=== PATIENT | female | born 1945 | race Caucasian/White ===

== ENCOUNTER → 2020-07-14 13:06 | Outpatient (BNVA) | payer MEDICARE, OTHER, SELFPAY | PROVIDERS: PCP Family Medicine; Referring Provider Family Medicine; Visit Provider Internal Medicine Endocrinology, Diabetes & Metabolism | DX: E11.65 Type 2 diabetes mellitus with hyperglycemia (principal); I12.9 Hypertensive chronic kidney disease with stage 1 through stage 4 chronic kidney disease, or unspecified chronic kidney disease; E11.22 Type 2 diabetes mellitus with diabetic chronic kidney disease; N18.30 Chronic kidney disease, stage 3 unspecified; Z79.4 Long term (current) use of insulin; E78.5 Hyperlipidemia, unspecified; E66.9 Obesity, unspecified; Z68.38 Body mass index [BMI] 38.0-38.9, adult | CPT/HCPCS: 82947; 99212 ==

== ENCOUNTER 2020-08-04 11:21 | Emergency (ER) | payer MEDICARE, OTHER, SELFPAY ==
[2020-08-04 11:46] VITALS: BP 153/74; PULSE 90; RESP 16; TEMP 37.7; O2SAT 98; BMI 37.8
--- NOTE | 2020-08-04 11:48 | ED.URI ---
HPI - URI/Sore Throat General Chief Complaint: Weakness Stated Complaint: loss of appetite,mouth dry,weak Time Seen by Provider: 08/04/20 11:47 Source: patient Mode of arrival: ambulatory Limitations: no limitations History of Present Illness MD elicited complaint: other (body aches, malaise, overall weakness) Pertinent past history: asthma and other Onset (ago): day(s) (3) Consistency: constant Severity: moderate Able to tolerate fluids by mouth: Yes Exacerbating factors: nothing Relieving factors: nothing Associated symptoms: chills, myalgias and nausea Treatments prior to arrival: none Related Data Home Medications Medication Instructions Recorded Confirmed amlodipine 5 mg tablet 5 mg PO DAILY 07/14/20 07/14/20 aspirin 81 mg tablet,delayed 81 mg PO DAILY 07/14/20 07/14/20 release atorvastatin 20 mg tablet 20 mg PO DAILY 07/14/20 07/14/20 duloxetine 20 mg capsule,delayed 20 mg PO BID 07/14/20 07/14/20 release gabapentin 100 mg capsule 100 mg PO DAILY 07/14/20 07/14/20 metoprolol tartrate 25 mg tablet 75 mg PO DAILY tab 07/14/20 07/14/20 Previous Rx's Medication Instructions Recorded dulaglutide 1.5 mg/0.5 mL 1.5 mg SUBCUT QWEEK 90 Days #6.5 ml 07/14/20 subcutaneous pen injector empagliflozin 25 mg tablet 25 mg PO DAILY 90 Days #90 tab 07/14/20 insulin regular hum U-500 conc See Rx Instructions SUBCUT BEDTIME 07/14/20 90 Days #36 ml pioglitazone 30 mg tablet 30 mg PO DAILY 90 Days #90 tab 07/14/20 azithromycin See Rx Instructions .ROUTE 08/04/20 .COMPLEX #6 tab ondansetron 4 mg PO Q8H PRN #20 tab 08/04/20 Allergies Allergy/AdvReac Type Severity Reaction Status Date / Time fosinopril [FOSINOPRIL] Allergy Severe ANAPHYLAXIS Verified 08/04/20 11:54 lisinopril [LISINOPRIL] Allergy Severe ANAPHYLAXIS Verified 08/04/20 11:54 Review of Systems Review of Systems: Constitutional : No Weight loss, No Fever, pos Chills ENT/Mouth : No sore throat, No Rhinorrhea Eyes: No Swelling, No Redness Cardiovascular : No Chest Pain, No SOB, No Edema Respiratory : No Cough, No Sputum, No Wheezing Gastrointestinal : Positive Nausea, no Vomiting, no Diarrhea, no abdominal Pain, No Hematochezia, No Melena Genitourinary : No Dysuria, No Urinary Frequency, No Hematuria, No Urgency Musculoskeletal : No joint pain, pos Myalgias, No Joint Swelling Skin : No Skin Lesions, No rash Neuro : No Weakness, No Numbness, No Dizziness, No Headache Psych : No Anxiety/Panic, No Depression Heme/Lymph: No Bruising, No Lymphadenopathy Endocrine : No Polyuria, No Polydipsia All other systems reviewed and are negative. [facility] Past Medical History Attestation statement: The following information was validated with the patient. 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 Mother Diabetes mellitus Social History Social History Smoking Status: Former smoker Advance Directives: No Advance Directives Information Provided: No Physical Exam Vital Signs: Vital Signs: Last Vital Signs Temp 99.7 F 08/04/20 14:13 Pulse 78 08/04/20 14:13 Resp 16 08/04/20 14:13 BP 127/42 L 08/04/20 14:13 Pulse Ox 99 08/04/20 14:13 Body Mass Index 37.8 Appearance: Alert. Oriented X3. No acute distress. Eyes: Pupils equal, round and reactive to light. ENT: Pharynx normal. Neck: Normal inspection. Neck supple. CVS: Normal heart rate and rhythm. Pulses normal. Respiratory: No respiratory distress. Breath sounds normal. Abdomen: Soft and nontender. Skin: Skin warm and dry. Normal skin color. Normal skin turgor. Extremities: No lower extremity edema. No calf ttp Neuro: Oriented X 3. No motor deficit. No sensory deficit. Course Course Course Narrative: no hypoxia, no resp distress + COVID, if repeat trop flat stable for DC no CP/SOB doubt PE repeat trop flat MDM - URI/Sore Throat MDM Narrative Medical decision making narrative: 75 yo female with URI x a few days overall just feeling weakness with malaise and anorexia x 2 weeks no distress, no abdominal pain, clear lungs at this time will obtain basic labs, UA, CXR, COVID swab no resp distress, no hypoxia dispo per results and findings. Lab Data Result diagrams: 08/04/20 12:41 08/04/20 12:41 Labs: Lab Results 08/04/20 08/04/20 08/04/20 Range/Units 12:41 12:41 12:41 WBC 7.7 (4.8-10.8) X10*3/uL RBC 4.93 (4.20-5.50) X10*6/uL Hgb 14.5 (12.0-16.0) g/dl Hct 44.9 (37-47) % MCV 91.1 (80-98) fL MCH 29.4 (27.0-33.0) pg MCHC 32.3 (31.0-35.0) g/dl RDW 14.9 (11.0-16.0) % Plt Count 241 (160-400) X10*3/uL MPV 10.0 (9.4-12.3) fL Immature Gran % (Auto) 1.3 H (0.0-0.4) % Neut % (Auto) 83.8 H (45-73) % Lymph % (Auto) 8.2 L (20-40) % Elbert % (Auto) 6.4 (2-11) % Eos % (Auto) 0.0 (0-4) % Baso % (Auto) 0.3 (0-2) % Lymph # (Auto) 0.6 L (1.2-4.9) X10*3/uL Elbert # (Auto) 0.5 (0.1-1.2) X10*3/uL Eos # (Auto) 0.0 (0.0-0.4) X10*3/uL Baso # (Auto) 0.0 (0.0-0.2) X10*3/uL Abs Immat Gran (auto) 0.10 H (0.00-0.03) X10*3/uL Absolute Neuts (auto) 6.4 (2.0-8.3) X10*3/uL Absolute Nucleated RBC 0.000 (0.0-0.012) X10*3/uL Nucleated RBC % (auto) 0.0 (0.0-0.2) /100WBC Smear Tech's Comments VERIFIED PT 13.3 H (10.8-13.0) SEC INR 1.1 (0.9-1.1) APTT 32.7 (24.1-38.0) SEC Sodium 137 (135-145) mmol/L Potassium 4.4 (3.3-5.1) mmol/l Chloride 100 (96-108) mmol/L Carbon Dioxide 24 (22-29) mmol/L Anion Gap 17 (12-20) BUN 17 H (9-16) mg/dL Creatinine 1.23 (0.5-1.4) mg/dL Estim Creat Clear Calc 42.8 Estimated GFR 43 Random Glucose 227 H (60-115) mg/dL Lactic Acid (0.5-2.0) mmol/L Calcium 8.2 L (8.4-10.2) mg/dL Magnesium (1.6-2.6) mg/dL Total Bilirubin 0.7 (0.0-1.0) mg/dL Direct Bilirubin 0.3 (0.0-0.5) mg/dL AST 27 (5-31) U/L ALT 25 (0-31) U/L Alkaline Phosphatase 139 H (39-117) U/L Troponin I High Sens (<3.5-17.0) ng/L Total Protein 7.0 (6.5-8.0) g/dL Albumin 3.6 (3.5-5.0) g/dL Lipase 27 (8-78) U/L Coronavirus (PCR) (Negative) Influenza Type A (PCR) (Negative) Influenza Type B (PCR) (Negative) RSV RNA Qual (PCR) (Negative) 08/04/20 08/04/20 08/04/20 Range/Units 12:41 12:41 12:41 WBC (4.8-10.8) X10*3/uL RBC (4.20-5.50) X10*6/uL Hgb (12.0-16.0) g/dl Hct (37-47) % MCV (80-98) fL MCH (27.0-33.0) pg MCHC (31.0-35.0) g/dl RDW (11.0-16.0) % Plt Count (160-400) X10*3/uL MPV (9.4-12.3) fL Immature Gran % (Auto) (0.0-0.4) % Neut % (Auto) (45-73) % Lymph % (Auto) (20-40) % Elbert % (Auto) (2-11) % Eos % (Auto) (0-4) % Baso % (Auto) (0-2) % Lymph # (Auto) (1.2-4.9) X10*3/uL Elbert # (Auto) (0.1-1.2) X10*3/uL Eos # (Auto) (0.0-0.4) X10*3/uL Baso # (Auto) (0.0-0.2) X10*3/uL Abs Immat Gran (auto) (0.00-0.03) X10*3/uL Absolute Neuts (auto) (2.0-8.3) X10*3/uL Absolute Nucleated RBC (0.0-0.012) X10*3/uL Nucleated RBC % (auto) (0.0-0.2) /100WBC Smear Tech's Comments PT (10.8-13.0) SEC INR (0.9-1.1) APTT (24.1-38.0) SEC Sodium (135-145) mmol/L Potassium (3.3-5.1) mmol/l Chloride (96-108) mmol/L Carbon Dioxide (22-29) mmol/L Anion Gap (12-20) BUN (9-16) mg/dL Creatinine (0.5-1.4) mg/dL Estim Creat Clear Calc Estimated GFR Random Glucose (60-115) mg/dL Lactic Acid (0.5-2.0) mmol/L Calcium (8.4-10.2) mg/dL Magnesium 1.9 (1.6-2.6) mg/dL Total Bilirubin (0.0-1.0) mg/dL Direct Bilirubin (0.0-0.5) mg/dL AST (5-31) U/L ALT (0-31) U/L Alkaline Phosphatase (39-117) U/L Troponin I High Sens 14.3 (<3.5-17.0) ng/L Total Protein (6.5-8.0) g/dL Albumin (3.5-5.0) g/dL Lipase (8-78) U/L Coronavirus (PCR) POSITIVE A (Negative) Influenza Type A (PCR) NEGATIVE (Negative) Influenza Type B (PCR) NEGATIVE (Negative) RSV RNA Qual (PCR) NEGATIVE (Negative) 08/04/20 08/04/20 Range/Units 14:18 15:51 WBC (4.8-10.8) X10*3/uL RBC (4.20-5.50) X10*6/uL Hgb (12.0-16.0) g/dl Hct (37-47) % MCV (80-98) fL MCH (27.0-33.0) pg MCHC (31.0-35.0) g/dl RDW (11.0-16.0) % Plt Count (160-400) X10*3/uL MPV (9.4-12.3) fL Immature Gran % (Auto) (0.0-0.4) % Neut % (Auto) (45-73) % Lymph % (Auto) (20-40) % Elbert % (Auto) (2-11) % Eos % (Auto) (0-4) % Baso % (Auto) (0-2) % Lymph # (Auto) (1.2-4.9) X10*3/uL Elbert # (Auto) (0.1-1.2) X10*3/uL Eos # (Auto) (0.0-0.4) X10*3/uL Baso # (Auto) (0.0-0.2) X10*3/uL Abs Immat Gran (auto) (0.00-0.03) X10*3/uL Absolute Neuts (auto) (2.0-8.3) X10*3/uL Absolute Nucleated RBC (0.0-0.012) X10*3/uL Nucleated RBC % (auto) (0.0-0.2) /100WBC Smear Tech's Comments PT (10.8-13.0) SEC INR (0.9-1.1) APTT (24.1-38.0) SEC Sodium (135-145) mmol/L Potassium (3.3-5.1) mmol/l Chloride (96-108) mmol/L Carbon Dioxide (22-29) mmol/L Anion Gap (12-20) BUN (9-16) mg/dL Creatinine (0.5-1.4) mg/dL Estim Creat Clear Calc Estimated GFR Random Glucose (60-115) mg/dL Lactic Acid 0.9 (0.5-2.0) mmol/L Calcium (8.4-10.2) mg/dL Magnesium (1.6-2.6) mg/dL Total Bilirubin (0.0-1.0) mg/dL Direct Bilirubin (0.0-0.5) mg/dL AST (5-31) U/L ALT (0-31) U/L Alkaline Phosphatase (39-117) U/L Troponin I High Sens 14.1 (<3.5-17.0) ng/L Total Protein (6.5-8.0) g/dL Albumin (3.5-5.0) g/dL Lipase (8-78) U/L Coronavirus (PCR) (Negative) Influenza Type A (PCR) (Negative) Influenza Type B (PCR) (Negative) RSV RNA Qual (PCR) (Negative) ECG Data Attestation: I personally reviewed and interpreted this ECG as follows: ECG interpretation date: 08/04/20 ECG interpretation time: 14:02 Interpretation: Rate: 80 Rhythm: NSR [place]: normal Normal P waves. Normal ANA. Normal QRS complex. ST T wave : normal, no ALAN qTC: normal prior studies: no acute ischemia The study has been interpreted contemporaneously by me. . Discharge Plan Discharge Clinical Impression: COVID-19 Patient Disposition: Home, Self-Care Instructions: COVID-19 (Coronavirus Disease 2019) (ED) Additional Instructions: return to ED for any worsening symptoms or concerns Prescriptions: New ondansetron 4 mg tablet,disintegrating 4 mg PO Q8H PRN (Reason: nausea and vomiting) Qty: 20 RF: 0 azithromycin 250 mg tablet See Rx Instructions .ROUTE .COMPLEX Qty: 6 RF: 0 No Action metoprolol tartrate 25 mg tablet 75 mg PO DAILY RF: 0 amlodipine 5 mg tablet 5 mg PO DAILY RF: 0 atorvastatin 20 mg tablet 20 mg PO DAILY RF: 0 aspirin [Adult Aspirin Regimen] 81 mg tablet,delayed release (DR/EC) 81 mg PO DAILY RF: 0 duloxetine 20 mg capsule,delayed release(DR/EC) 20 mg PO BID RF: 0 gabapentin 100 mg capsule 100 mg PO DAILY RF: 0 pioglitazone 30 mg tablet 30 mg PO DAILY 90 Days Qty: 90 RF: 1 Jardiance 25 mg tablet 25 mg PO DAILY 90 Days Qty: 90 RF: 1 Trulicity 1.5 mg/0.5 mL pen injector 1.5 mg subcut QWEEK 90 Days Qty: 6.5 RF: 1 Humulin R U-500 (Conc) Kwikpen 500 unit/mL (3 mL) insulin pen See Rx Instructions subcut BEDTIME 90 Days Qty: 36 RF: 1 Referrals: Salima Billings MD [Primary Care Provider] - 5 days (if not better) Print Language: Persian
--- NOTE | 2020-08-04 11:55 | ECG_ITS ---
Test Reason : WEAKNESS Blood Pressure : / mmHG Vent. Rate : 080 BPM Atrial Rate : 080 BPM P-R Int : 146 ms QRS Dur : 082 ms QT Int : 362 ms P-R-T Axes : 047 048 042 degrees QTc Int : 417 ms Normal sinus rhythm Normal ECG When compared with ECG of 29-DEC-2016 14:54, No significant change was found Referred By: Yuliana Burgos Electronically Signed By:Chavo Bloom
--- NOTE | 2020-08-04 11:56 | XR_ITS ---
EXAMINATION: XR CHEST CLINICAL INFORMATION: Dyspnea. COMPARISON: 01/21/2020 TECHNIQUE: Frontal view of the chest was obtained. FINDINGS: Cardiomediastinal silhouette is within normal limits. Calcification of the aortic arch. Low lung volumes. Mild central vascular prominence. There is diffuse bronchial wall thickening, increased from previous. Diffuse hazy and patchy airspace opacities, with interstitial prominence in bilateral hemithoraces, increased from previous. Possible trace left pleural effusion. No pneumothorax. XR/XR chest 1V IMPRESSION: Central vascular prominence. Bronchial wall thickening and diffuse hazy and patchy airspace opacities in bilateral hemithoraces. Differential considerations include infectious or inflammatory process, mild pulmonary edema. Possible trace left pleural effusion.
[2020-08-04] MEDS: Acetaminophen 325 MG TABLET 650 MG PO (12:43)
[2020-08-04] MEDS: ondansetron HCL 4 MG/2 ML VIAL IVPUSH (12:43)
[2020-08-04 12:56] LABS: Basophils Percent Auto 0.3 % (0-2); Hematocrit 44.9 % (37-47); Hemoglobin 14.5 g/dl (12.0-16.0); Imm Gran Pct Auto 1.3 % (0.0-0.4); Lymphocytes Absolute Auto 0.6 X10*3/uL (1.2-4.9); Lymphocytes Percent Auto 8.2 % (20-40); MANUAL DIFF FLAG SCAN; Mean Corpuscular HGB Conc 32.3 g/dl (31.0-35.0); Mean Corpuscular Hemoglobin 29.4 pg (27.0-33.0); Mean Corpuscular Volume 91.1 fL (80-98); Monocytes Absolute Auto 0.5 X10*3/uL (0.1-1.2); Monocytes Percent Auto 6.4 % (2-11); Neutrophils Absolute Auto 6.4 X10*3/uL (2.0-8.3); Neutrophils Percent Auto 83.8 % (45-73); Platelet Count 241 X10*3/uL (160-400); Red Blood Count 4.93 X10*6/uL (4.20-5.50); Red Cell Distribution Width 14.9 % (11.0-16.0); SCAN SMEAR FLAG 1; White Blood Count 7.7 X10*3/uL (4.8-10.8)
[2020-08-04 13:05] LABS: INTERNATIONAL NORM RATIO 1.1 (0.9-1.1); Prothrombin Time 13.3 SEC (10.8-13.0)
[2020-08-04 13:08] LABS: Partial Thromboplastin Time 32.7 SEC (24.1-38.0)
[2020-08-04] MEDS: cefTRIAXone sodium 1 GM in 0.9 % Sodium Chloride 50 ML IV (13:14)
[2020-08-04 13:24] LABS: SLIDE REVIEW VERIFIED
[2020-08-04 13:34] LABS: Troponin-I High Sensitivity 14.3 ng/L (<3.5-17.0)
[2020-08-04 13:35] LABS: Alanine Aminotransferase 25 U/L (0-31); Albumin Level 3.6 g/dL (3.5-5.0); Alkaline Phosphatase 139 U/L (39-117); Anion Gap 17 (12-20); Aspartate Amino Transferase 27 U/L (5-31); Bilirubin Direct 0.3 mg/dL (0.0-0.5); Bilirubin Total 0.7 mg/dL (0.0-1.0); Blood Urea Nitrogen 17 mg/dL (9-16); Calcium 8.2 mg/dL (8.4-10.2); Carbon Dioxide 24 mmol/L (22-29); Chloride 100 mmol/L (96-108); Creatinine Clr Calc Pharmacy 42.8; Estimated Glomerular Filt Rate 43; Glucose Random 227 mg/dL (60-115); Lipase 27 U/L (8-78); Potassium 4.4 mmol/l (3.3-5.1); Sodium 137 mmol/L (135-145)
[2020-08-04 13:36] LABS: Magnesium 1.9 mg/dL (1.6-2.6)
--- NOTE | 2020-08-04 14:00 | PC.NURSE ---
PT ARRIVES C/O WEAKNESS X 2 WKS, WITH NO APETITE. DENIES N/V/D, PAIN. MILDLY FEBRILE ON ARRIVAL. RESP EVEN AND NONLABOURED. SKIN COLOUR APPROPRIATE FOR ETHNICITY, WARM, DRY. #20 IN L AC. MEDICATED PER EMR.
[2020-08-04 14:13] VITALS: BP 127/42; PULSE 78; RESP 16; TEMP 37.6; O2SAT 99
[2020-08-04 14:46] LABS: Influenza A PCR NEGATIVE (Negative); Influenza B PCR NEGATIVE (Negative); Resp Syncy Virus RNA Qual PCR NEGATIVE (Negative); SARS COV2 PCR INHOUSE POSITIVE (Negative)
[2020-08-04 14:54] LABS: Lactic Acid 0.9 mmol/L (0.5-2.0)
[2020-08-04 16:27] LABS: Troponin-I High Sensitivity 14.1 ng/L (<3.5-17.0)
== END 2020-08-04 17:00 | disposition home or self-care (01) ==
PROVIDERS: Emergency Provider Emergency Medicine; PCP Family Medicine
DX: U07.1 COVID-19 (principal); J45.909 Unspecified asthma, uncomplicated; E11.22 Type 2 diabetes mellitus with diabetic chronic kidney disease; I12.9 Hypertensive chronic kidney disease with stage 1 through stage 4 chronic kidney disease, or unspecified chronic kidney disease; N18.30 Chronic kidney disease, stage 3 unspecified; Z79.4 Long term (current) use of insulin; Z79.899 Other long term (current) drug therapy; Z79.82 Long term (current) use of aspirin; Z87.891 Personal history of nicotine dependence
CPT/HCPCS: 0241U; 36415; 71045; 80048; 80076; 83605; 83690; 83735; 84484; 85025; 85610; 85730; 87040; 93005; 96365; 96375; 99284; J0696; J2405

== ENCOUNTER → 2020-10-16 13:00 | Outpatient (BNVA) | payer MEDICARE, OTHER, SELFPAY | PROVIDERS: PCP Family Medicine; Visit Provider Internal Medicine Endocrinology, Diabetes & Metabolism | DX: E11.65 Type 2 diabetes mellitus with hyperglycemia (principal); E11.21 Type 2 diabetes mellitus with diabetic nephropathy; I10 Essential (primary) hypertension; E78.5 Hyperlipidemia, unspecified; E66.9 Obesity, unspecified; Z79.4 Long term (current) use of insulin | CPT/HCPCS: 82947; 99212 ==

== ENCOUNTER 2020-11-25 12:24 | Outpatient (REF) | payer MEDICARE, OTHER, SELFPAY ==
--- NOTE | ~2020-11-25 | XR_ITS ---
EXAMINATION: XR ANKLE, LEFT CLINICAL INFORMATION: Pain left ankle. COMPARISON: 05/07/2020 TECHNIQUE: AP, lateral, and mortise views of the left ankle. FINDINGS: There is no evidence of acute fracture or dislocation of the left ankle. No significant soft tissue swelling identified. Ankle mortise appears intact. Prominent calcaneal spurs are seen sites of insertion of the Achilles and plantar tendons. XR/XR ankle LT min 3V IMPRESSION: Calcaneal spurs. No significant left ankle bony abnormality appreciated.
== END 2020-11-25 12:25 | disposition home or self-care (01) ==
LOC: HO.HOSX 12:24
PROVIDERS: PCP Family Medicine; Visit Provider Orthopaedic Surgery
DX: M25.572 Pain in left ankle and joints of left foot (principal); M25.472 Effusion, left ankle
CPT/HCPCS: 73610; 99202

== ENCOUNTER 2020-12-01 07:04 | Outpatient (REF) | payer MEDICARE, OTHER, SELFPAY ==
[2020-12-01 08:20] LABS: Anion Gap 13 (12-20); Blood Urea Nitrogen 27 mg/dL (9-16); Calcium 9.8 mg/dL (8.4-10.2); Carbon Dioxide 26 mmol/L (22-29); Chloride 104 mmol/L (96-108); Estimated Glomerular Filt Rate 48; Potassium 4.1 mmol/L (3.3-5.1); Sodium 139 mmol/L (135-145)
[2020-12-01 10:15] LABS: Creatinine Urine 66.84 mg/dL; Protein/Creatinine Ratio, Ur 0.18 (<0.2); Total Protein Urine Random 12 mg/dL (<12)
== END 2020-12-01 07:05 | disposition home or self-care (01) ==
LOC: HO.LAB 07:04
PROVIDERS: PCP Family Medicine; Visit Provider Internal Medicine Hypertension Specialist
DX: I12.9 Hypertensive chronic kidney disease with stage 1 through stage 4 chronic kidney disease, or unspecified chronic kidney disease (principal); E11.22 Type 2 diabetes mellitus with diabetic chronic kidney disease; N18.9 Chronic kidney disease, unspecified; E11.65 Type 2 diabetes mellitus with hyperglycemia
CPT/HCPCS: 36415; 80051; 82310; 82565; 84156; 84520

== ENCOUNTER 2020-12-04 14:32 | Outpatient (REF) | payer MEDICARE, OTHER, SELFPAY ==
--- NOTE | ~2020-12-04 | MM_ITS ---
EXAMINATION: MM DIAGNOSTIC DIGITAL BREAST TOMOSYNTHESIS, RIGHT CLINICAL INFORMATION: Follow-up calcifications The lifetime risk of breast cancer based on the Tyrer-Cuzick Model is 2.1%. COMPARISON: Mammography: May 15, 2020 TECHNIQUE: Digital breast tomosynthesis is performed in both the craniocaudal and mediolateral oblique views along with computer-aided detection (CAD). Synthesized 2D images are generated from the tomosynthesis. Spot magnification films in craniocaudal and 90 degree mediolateral views also performed as well as exaggerated craniocaudal view. FINDINGS: There are scattered areas of fibroglandular density (ACR BI-RADS breast composition Category b). There is a stable parenchymal pattern present without new abnormal dominant mass or suspicious grouping of microcalcifications identified. There is stable appearance of a tight grouping of coarse calcifications about the upper outer aspect of the right breast with benign appearance. Vascular calcifications are present. Results are provided to the patient at time of visit by the technologist. MM/MM tomosynthesis diagnostic RT IMPRESSION: There are no significant changes from prior study. ASSESSMENT: BI-RADS 2: Benign RECOMMENDATION: Return to yearly screening mammography. This patient's information was entered into a reminder system with a target due date for their next mammogram.
== END 2020-12-04 14:33 | disposition home or self-care (01) ==
LOC: HO.MAMMO 14:32
PROVIDERS: PCP Family Medicine; Visit Provider Family Medicine
DX: R92.1 Mammographic calcification found on diagnostic imaging of breast (principal)
CPT/HCPCS: 77061; 77065

== ENCOUNTER → 2021-01-06 13:58 | Outpatient (BNVA) | payer MEDICARE, OTHER, SELFPAY | PROVIDERS: PCP Family Medicine; Visit Provider Nurse Practitioner Gerontology | DX: E11.65 Type 2 diabetes mellitus with hyperglycemia (principal); Z79.4 Long term (current) use of insulin; I10 Essential (primary) hypertension; E66.9 Obesity, unspecified | CPT/HCPCS: 82947; 99212 ==

== ENCOUNTER → 2021-01-12 14:16 | Outpatient (BNVA) | payer MEDICARE, OTHER, SELFPAY | PROVIDERS: PCP Family Medicine; Visit Provider Internal Medicine | DX: G47.33 Obstructive sleep apnea (adult) (pediatric) (principal); E66.9 Obesity, unspecified; D75.1 Secondary polycythemia | CPT/HCPCS: 99202 ==

== ENCOUNTER → 2021-01-20 14:03 | Outpatient (BNVA) | payer MEDICARE, OTHER, SELFPAY | PROVIDERS: PCP Family Medicine; Visit Provider Internal Medicine Endocrinology, Diabetes & Metabolism | DX: E11.65 Type 2 diabetes mellitus with hyperglycemia (principal); E11.21 Type 2 diabetes mellitus with diabetic nephropathy; I10 Essential (primary) hypertension; E78.5 Hyperlipidemia, unspecified; E66.9 Obesity, unspecified; Z79.4 Long term (current) use of insulin | CPT/HCPCS: 82947; 99212 ==

== ENCOUNTER 2021-01-30 08:51 | Outpatient (REF) | payer MEDICARE, OTHER, SELFPAY ==
[2021-01-30 10:21] LABS: Alanine Aminotransferase 8 U/L (0-31); Albumin Level 4.1 g/dL (3.5-5.0); Alkaline Phosphatase 78 U/L (39-117); Anion Gap 12 (12-20); Aspartate Amino Transferase 12 U/L (5-31); Bilirubin Total 0.7 mg/dL (0.0-1.0); Blood Urea Nitrogen 18 mg/dL (9-16); Calcium 9.9 mg/dL (8.4-10.2); Carbon Dioxide 31 mmol/L (22-29); Chloride 104 mmol/L (96-108); Estimated Glomerular Filt Rate 44; Glucose Random 179 mg/dL (60-115); Potassium 4.2 mmol/L (3.3-5.1); Sodium 143 mmol/L (135-145); Total Protein 7.1 g/dL (6.5-8.0)
== END 2021-01-30 08:52 | disposition home or self-care (01) ==
LOC: HO.LAB 08:51
PROVIDERS: PCP Family Medicine; Visit Provider Internal Medicine Endocrinology, Diabetes & Metabolism
DX: E11.65 Type 2 diabetes mellitus with hyperglycemia (principal); E11.21 Type 2 diabetes mellitus with diabetic nephropathy
CPT/HCPCS: 36415; 80053

== ENCOUNTER → 2021-02-05 13:57 | Outpatient (REF) | payer MEDICARE, OTHER, SELFPAY | LOC: HO.SL 13:57 | PROVIDERS: PCP Family Medicine; Visit Provider Internal Medicine | DX: G47.33 Obstructive sleep apnea (adult) (pediatric) (principal); E66.9 Obesity, unspecified | CPT/HCPCS: 95806; 97802 ==

== ENCOUNTER 2021-03-31 07:09 | Outpatient (REF) | payer MEDICARE, OTHER, SELFPAY ==
[2021-03-31 08:43] LABS: Anion Gap 12 (12-20); Blood Urea Nitrogen 27 mg/dL (9-16); Calcium 9.9 mg/dL (8.4-10.2); Carbon Dioxide 31 mmol/L (22-29); Chloride 104 mmol/L (96-108); Cholesterol 118 mg/dL; Estimated Glomerular Filt Rate 38; Glucose Random 131 mg/dL (60-115); HDL Cholesterol 34 mg/dL; LDL Cholesterol Calculated 53 mg/dl; Potassium 4.3 mmol/L (3.3-5.1); Sodium 143 mmol/L (135-145); Triglycerides 155 mg/dL
== END 2021-03-31 07:10 | disposition home or self-care (01) ==
LOC: HO.LAB 07:09
PROVIDERS: Absent Provider Internal Medicine Cardiovascular Disease; PCP Family Medicine; Visit Provider Internal Medicine Hypertension Specialist
DX: E78.5 Hyperlipidemia, unspecified (principal); I10 Essential (primary) hypertension
CPT/HCPCS: 36415; 80048; 80061

== ENCOUNTER → 2021-04-06 12:43 | Outpatient (BNVA) | payer MEDICARE, SELFPAY | PROVIDERS: PCP Family Medicine; Visit Provider Dietitian, Registered | DX: E11.65 Type 2 diabetes mellitus with hyperglycemia (principal); E66.9 Obesity, unspecified; Z68.41 Body mass index [BMI] 40.0-44.9, adult | CPT/HCPCS: 97803 ==

== ENCOUNTER 2021-05-06 13:01 | Outpatient (REF) | payer MEDICARE, OTHER, SELFPAY ==
--- NOTE | ~2021-05-06 | XR_ITS ---
EXAMINATION: XR CHEST CLINICAL INFORMATION: History of other medical treatment COMPARISON: Previous chest x-ray July 2020 TECHNIQUE: 2 views of the chest were obtained. FINDINGS: The cardiac silhouette does not appear enlarged. The pulmonary natalee appear slightly prominent. There are increased central bronchovascular markings. This is similar to July 2020 exam. The lungs are otherwise clear. There is no pleural effusion. There are degenerative changes of the spine. XR/XR chest 2V IMPRESSION: Prominent pulmonary natalee and increased central bronchovascular markings. This may represent airways disease/bronchitis or asthma or an atypical viral/interstitial pneumonia.
== END 2021-05-06 13:02 | disposition home or self-care (01) ==
LOC: HO.XRAY 13:01
PROVIDERS: PCP Family Medicine; Visit Provider Family Medicine
DX: R91.8 Other nonspecific abnormal finding of lung field (principal)
CPT/HCPCS: 71046

== ENCOUNTER → 2021-05-19 12:24 | Outpatient (BNVA) | payer MEDICARE, SELFPAY | PROVIDERS: PCP Family Medicine; Visit Provider Dietitian, Registered | DX: E11.65 Type 2 diabetes mellitus with hyperglycemia (principal) | CPT/HCPCS: 97803 ==

== ENCOUNTER 2021-05-25 13:04 | Outpatient (REF) | payer MEDICARE, SELFPAY ==
[2021-05-25 15:31] LABS: Estimated Average Glucose 157 mg/dL; Hemoglobin A1c % 7.1 %
[2021-05-25 16:04] LABS: Alanine Aminotransferase 10 U/L (0-31); Albumin Level 4.1 g/dL (3.5-5.0); Alkaline Phosphatase 68 U/L (39-117); Anion Gap 10 (12-20); Aspartate Amino Transferase 10 U/L (5-31); Bilirubin Total 0.3 mg/dL (0.0-1.0); Blood Urea Nitrogen 21 mg/dL (9-16); Calcium 10.2 mg/dL (8.4-10.2); Carbon Dioxide 31 mmol/L (22-29); Chloride 104 mmol/L (96-108); Cholesterol 129 mg/dL; Estimated Glomerular Filt Rate 46; Glucose Random 151 mg/dL (60-115); HDL Cholesterol 31 mg/dL; LDL Cholesterol Calculated 36 mg/dl; Potassium 4.4 mmol/L (3.3-5.1); Sodium 141 mmol/L (135-145); Total Protein 7.2 g/dL (6.5-8.0); Triglycerides 311 mg/dL
[2021-05-25 16:12] LABS: Creatinine Urine 53.61 mg/dL; Microalbum/Creatinine Ratio Ur 22.3 ug/mg cr
== END 2021-05-25 13:05 | disposition home or self-care (01) ==
LOC: HO.LAB 13:04
PROVIDERS: PCP Family Medicine; Visit Provider Nurse Practitioner Gerontology
DX: E11.21 Type 2 diabetes mellitus with diabetic nephropathy (principal); E11.22 Type 2 diabetes mellitus with diabetic chronic kidney disease; J45.909 Unspecified asthma, uncomplicated; E78.5 Hyperlipidemia, unspecified; N32.81 Overactive bladder; E03.9 Hypothyroidism, unspecified; I12.9 Hypertensive chronic kidney disease with stage 1 through stage 4 chronic kidney disease, or unspecified chronic kidney disease; N18.9 Chronic kidney disease, unspecified; E66.9 Obesity, unspecified; Z79.899 Other long term (current) drug therapy; Z79.4 Long term (current) use of insulin; Z87.891 Personal history of nicotine dependence
CPT/HCPCS: 36415; 80053; 80061; 82043; 82947; 83036; 99212

== ENCOUNTER → 2024-05-01 10:10 | Outpatient (RCR) | payer MEDICARE, OTHER, SELFPAY ==
[2021-01-07 14:44] VITALS: BP 145/65; PULSE 66; RESP 12; TEMP 36.6; O2SAT 94; BMI 39.9
--- NOTE | 2021-01-07 15:07 | PM.HEMONCCN ---
Subjective - Subjective Chief complaint: Elevated blood counts Patient: new to practice Consult date: 01/07/21 Primary Care Provider: Salima Billings MD HPI - Consult Narrative Reason for consult: Erythrocytosis Narrative: Gretta Bo is a 75 year old female referred for evaluation of erythrocytosis. She has been told of high RBC count for some time. Her main complaint is that she was diagnosed with sleep apnea and her CPAP machine does not fit well. She is not able to use the machine. She wakes up frequently at night with difficulty breathing and feels tired during the day. She denies any history of smoking or underlying lung problems such as COPD. She denies fever, chills, night sweats or unexplained weight loss. Review of Systems - Constitutional Reports as per HPI, Reports difficulty sleeping, Reports fatigue, Reports malaise, Reports stops breathing during sleep - Cardiovascular Denies chest pain, Denies chest pain with activity, Denies fainting - Respiratory Denies cough, Denies pain with cough, Denies dyspnea - Gastrointestinal Reports no additional gastrointestinal complaints - Musculoskeletal Reports no additional musculoskeletal complaints - Integumentary/Breasts Skin/Breast: Reports no additional skin complaints Oncology Screenings - ECOG Performance Status ECOG Performance Status: 1 [facility] Medical History: Medical History (Last Updated 01/07/21 @ 14:48 by Joyce Wagoner) Asthma CKD (chronic kidney disease) stage 3, GFR 30-59 ml/min Diabetes type 2, uncontrolled Diabetic nephropathy associated with type 2 diabetes mellitus Dyslipidemia Hypertension 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 Mother Diabetes mellitus Surgical History: Surgical History (Last Reviewed 01/06/21 @ 14:34 by ALAN Castellanos) Hx of hysterectomy Hx of tubal ligation Social History: Social History (Last Updated 01/07/21 @ 14:50 by Joyce Wagoner) Alcohol History: Alcohol intake: former Alcohol History Details: Alcohol intake frequency: does not drink Tobacco History: Smoking Status: Former smoker Smoking Quit Date: 1989 Smoking status: Former smoker Home Medications and Allergies Home Medications Medication Instructions Recorded Confirmed Type amlodipine 5 mg tablet 5 mg PO DAILY 07/14/20 01/07/21 History aspirin 81 mg tablet,delayed 81 mg PO DAILY 07/14/20 01/07/21 History release atorvastatin 20 mg tablet 20 mg PO DAILY 07/14/20 01/07/21 History gabapentin 100 mg capsule 100 mg PO DAILY 07/14/20 01/07/21 History cyanocobalamin (vitamin B-12) 100 100 mcg PO BEDTIME 10/16/20 01/07/21 History mcg tablet metoprolol succinate 50 mg 75 mg PO QAM 10/16/20 01/07/21 History tablet,extended release 24 hr pen needle, diabetic 31 gauge x #1200 ea 10/16/20 01/07/21 History 5/16 sennosides 8.6 mg tablet 17.2 mg PO BEDTIME PRN 10/16/20 01/07/21 History cholecalciferol (vitamin D3) 25 25 mcg PO QAM 01/06/21 01/07/21 History mcg (1,000 unit) tablet duloxetine 20 mg capsule,delayed 20 mg PO DAILY cap 01/06/21 01/07/21 History release Allergies Allergy/AdvReac Type Severity Reaction Status Date / Time fosinopril [FOSINOPRIL] Allergy Severe ANAPHYLAXIS Verified 01/06/21 14:30 lisinopril [LISINOPRIL] Allergy Severe ANAPHYLAXIS Verified 01/06/21 14:30 Physical Exam Vital signs: Vital Signs Temp 97.9 F 01/07/21 14:44 Pulse 66 01/07/21 14:44 Resp 12 01/07/21 14:44 BP 145/65 H 01/07/21 14:44 Pulse Ox 94 01/07/21 14:44 Intake & Output 01/06/21 01/07/21 01/07/21 18:59 06:59 18:59 Other: Weight 99 kg Weight in Grams 12785 Weight 99 kg - Constitutional Present: no acute distress, mild distress - Routine HEENT Exam Head: Present: normal inspection Eye: Present: EOMI, conjunctivae pink - Routine Neck Exam Present: supple. Absent: lymphadenopathy - Routine Respiratory Exam Present: CTAB. Absent: rhonchi, stridor, wheezes - Routine Cardiovascular Exam Cardiovascular: Present: RRR, S1, S2 - Routine Abdominal Exam Present: soft - Routine Extremities Exam Present: pulses intact. Absent: pedal edema - Routine Skin Exam Present: intact. Absent: cyanosis, erythema - Routine Neurological Exam Present: oriented X3 Hem/Onc Consult Result - Labs CBC & Chem 7: 01/07/21 15:26 Assessment and Plan (1) Erythrocytosis Status: Chronic 1. This is a 75-year-old woman with chronic erythrocytosis. She has sleep apnea and has been unable to use her sleep apnea machine as it does not fit well. She has significant nocturnal symptoms of difficulty breathing and frequently waking up at night. Blood work shows elevated serum erythropoietin consistent with secondary erythrocytosis related to underlying sleep apnea and probable hypoxemia. If the erythrocytosis does not get corrected with proper use of CPAP machine and correction of her sleep apnea, further workup for primary bone marrow conditions such as myeloproliferative disorder/polycythemia vera will be undertaken. I have encouraged her to go to see her specialist about the sleep apnea. There is no need at this time for therapeutic phlebotomy. I thank you very much for this consultation. Follow-up in 3 months.
[2021-01-07 15:32] LABS: MANUAL DIFF FLAG NO
[2021-01-07 15:34] LABS: Basophils Absolute Auto 0.1 X10*3/uL (0.0-0.2); Eosinophils Absolute Auto 0.1 X10*3/uL (0.0-0.4); Eosinophils Percent Auto 1.5 % (0-4); Hemoglobin 16.4 g/dl (12.0-16.0); Imm Gran Abs Auto 0.04 X10*3/uL (0.00-0.03); Imm Gran Pct Auto 0.6 % (0.0-0.4); Immature Retic Fraction 13.8 % (3.0-15.9); Lymphocytes Absolute Auto 1.5 X10*3/uL (1.2-4.9); Lymphocytes Percent Auto 21.2 % (20-40); Mean Corpuscular HGB Conc 32.2 g/dl (31.0-35.0); Mean Corpuscular Hemoglobin 30.1 pg (27.0-33.0); Mean Corpuscular Volume 93.8 fL (80-98); Mean Platelet Volume 10.6 fL (9.4-12.3); Monocytes Absolute Auto 0.6 X10*3/uL (0.1-1.2); Monocytes Percent Auto 7.8 % (2-11); Neutrophils Absolute Auto 4.9 X10*3/uL (2.0-8.3); Neutrophils Percent Auto 67.9 % (45-73); Platelet Count 236 X10*3/uL (160-400); Red Blood Count 5.44 X10*6/uL (4.20-5.50); Red Cell Distribution Width 13.9 % (11.0-16.0); Retic HGB Equivalent 33.6 pg (30.0-35.0); Reticulocyte Percent 1.7 % (0.5-1.8); Reticulocytes Absolute 0.094 X10*6/uL (0.026-0.095); White Blood Count 7.3 X10*3/uL (4.8-10.8)
[2021-01-07 16:02] LABS: Lactate Dehydrogenase 187 U/L (122-220)
[2021-01-08 09:07] LABS: Erythropoietin (EPO) 17.3 mIU/mL (2.6-18.5)
--- NOTE | 2021-04-06 14:57 | P.PNHO_ITS ---
Medical Summary - Medical Summary Date of Service: 04/06/21 Chief complaint: Follow-up Medical Summary: Diagnosis: Secondary erythrocytosis Sleep apnea Interval History Interval history: Patient is here in follow-up. Her appointment was at 02:00 o'clock, she sat in the waiting room and fell asleep until 03:00 o'clock and did not check in. She says she continues to have extreme daytime sleepiness but has no problems being sleepy. She tries to use CPAP machine but it frequently falls off at night time. She denies any chest pain or shortness of breath. Review of Systems - Constitutional Reports as per HPI, Denies difficulty sleeping, Reports fatigue, Denies fever( s), Reports malaise, Denies night sweats - Cardiovascular Reports no additional cardiovascular complaints - Respiratory Reports no additional respiratory complaints - Neurologic Denies syncope [facility] Medical History: Medical History (Last Reviewed 04/06/21 @ 15:04 by Joyce Wagoner) Asthma CKD (chronic kidney disease) stage 3, GFR 30-59 ml/min Diabetes type 2, uncontrolled Diabetic nephropathy associated with type 2 diabetes mellitus Dyslipidemia Hypertension 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 Mother Diabetes mellitus Surgical History: Surgical History (Last Reviewed 04/06/21 @ 15:04 by Joyce Wagoner) Hx of hysterectomy Hx of tubal ligation Social History: Social History (Last Updated 04/06/21 @ 15:04 by Joyce Wagoner) Alcohol History: Alcohol intake: former Alcohol History Details: Alcohol intake frequency: does not drink Tobacco History: Patient Tobacco Use Status: Former Tobacco user Tobacco use type: Cigarette Cigarette Packs Per Day: 1 Cigarettes Per Day: 20.0 Smoke Quit Date: 1991 Substance Use History: Use of substances other than those prescribed or required for medical reasons : No Oncology Screenings - ECOG Performance Status ECOG Performance Status: 1 Home Medications and Allergies Home Medications Medication Instructions Recorded Confirmed Type amlodipine 5 mg tablet 5 mg PO DAILY 07/14/20 04/06/21 History aspirin 81 mg tablet,delayed 81 mg PO DAILY 07/14/20 04/06/21 History release (Adult Aspirin Regimen) atorvastatin 20 mg tablet 20 mg PO DAILY 07/14/20 04/06/21 History gabapentin 100 mg capsule 100 mg PO DAILY 07/14/20 04/06/21 History cyanocobalamin (vitamin B-12) 100 100 mcg PO BEDTIME 10/16/20 04/06/21 History mcg tablet metoprolol succinate 50 mg 75 mg PO QAM 10/16/20 04/06/21 History tablet,extended release 24 hr sennosides 8.6 mg tablet 17.2 mg PO BEDTIME PRN 10/16/20 04/06/21 History cholecalciferol (vitamin D3) 25 25 mcg PO QAM 01/06/21 04/06/21 History mcg (1,000 unit) tablet duloxetine 20 mg capsule,delayed 20 mg PO DAILY cap 01/06/21 04/06/21 History release fluticasone propionate 44 44 mcg INHALATION DAILY 01/12/21 04/06/21 History mcg/actuation HFA aerosol inhaler fluticasone propionate 50 1 spray INTRANASAL DAILY 01/12/21 04/06/21 History mcg/actuation nasal spray,suspension Allergies Allergy/AdvReac Type Severity Reaction Status Date / Time fosinopril [FOSINOPRIL] Allergy Severe ANAPHYLAXIS Verified 01/12/21 14:27 lisinopril [LISINOPRIL] Allergy Severe ANAPHYLAXIS Verified 01/12/21 14:27 Exam Vital signs: Vital Signs Temp 97.9 F 01/07/21 14:44 Pulse 66 01/07/21 14:44 Resp 12 01/07/21 14:44 BP 145/65 H 01/07/21 14:44 Pulse Ox 94 01/07/21 14:44 Weight 99 kg Body Mass Index 39.9 - Constitutional Present: no acute distress, mild distress - Routine HEENT Exam Head: Present: normal inspection - Routine Respiratory Exam Present: CTAB. Absent: rhonchi, stridor, wheezes - Routine Cardiovascular Exam Cardiovascular: Present: RRR, S1, S2 - Routine Abdominal Exam Present: soft - Routine Extremities Exam Present: pulses intact. Absent: pedal edema - Routine Skin Exam Present: intact. Absent: cyanosis, erythema - Routine Neurological Exam Present: oriented X3 Data - Labs CBC & Chem 7: 04/06/21 15:27 Labs: 01/07/21 15:26 Complete Blood Count Auto Diff Routine Erythropoietin (EPO) Routine LDH [Lactate Dehydrogenase] Routine Reticulocyte Count Routine Laboratory Last Values WBC 7.3 X10*3/uL (4.8-10.8) 01/07/21 15: RBC 5.44 X10*6/uL (4.20-5.50) 01/07/21 15: Hgb 16.4 g/dl (12.0-16.0) H 01/07/21 15: Hct 51.0 % (37-47) H 01/07/21 15: MCV 93.8 fL (80-98) 01/07/21 15: MCH 30.1 pg (27.0-33.0) 01/07/21 15: MCHC 32.2 g/dl (31.0-35.0) 01/07/21: RDW 13.9 % (11.0-16.0) 01/07/21 15: Plt Count 236 X10*3/uL (160-400) 01/07/21 15: MPV 10.6 fL (9.4-12.3) 01/07/21 15: Immature Gran % (Auto) 0.6 % (0.0-0.4) H 01/07/21 15: Neut % (Auto) 67.9 % (45-73) 01/07/21: Lymph % (Auto) 21.2 % (20-40) 01/07/21 15: [place] % (Auto) 7.8 % (2-11) 01/07/21: Eos % (Auto) 1.5 % (0-4) 01/07/21: Baso % (Auto) 1.0 % (0-2) 01/07/21 15: Lymph # (Auto) 1.5 X10*3/uL (1.2-4.9) 01/07/21: [place] # (Auto) 0.6 X10*3/uL (0.1-1.2) 01/07/21 15: Eos # (Auto) 0.1 X10*3/uL (0.0-0.4) 01/07/21: Baso # (Auto) 0.1 X10*3/uL (0.0-0.2) 01/07/21 15:26 Abs Immat Gran (auto) 0.04 X10*3/uL (0.00-0.03) H 01/07/21 15: Absolute Neuts (auto) 4.9 X10*3/uL (2.0-8.3) 01/07/21 15: Absolute Nucleated RBC 0.000 X10*3/uL (0.0-0.012) 01/07/21 15: Nucleated RBC % (auto) 0.0 /100WBC (0.0-0.2) 01/07/21 15: Absolute Retic 0.094 X10*6/uL (0.026-0.095) 01/07/21 15: Percent Retic 1.7 % (0.5-1.8) 01/07/21 15: Immature Retic Fraction 13.8 % (3.0-15.9) 01/07/21 15: Retic Hgb Equivalent 33.6 pg (30.0-35.0) 01/07/21 15: Erythropoietin 17.3 mIU/mL (2.6-18.5) 01/07/21 15: Lactate Dehydrogenase 187 U/L (122-220) 01/07/21 15:26 Progress Note: A/P (1) Erythrocytosis Problem details: It is mild, most likely secondary to to untreated sleep apnea. Status: Chronic Assessment and plan: 1. This is a 76-year-old woman with chronic erythrocytosis. She has sleep apnea and has been unable to use her sleep apnea machine as it does not fit well. She has significant nocturnal symptoms of difficulty breathing and frequently waking up at night. Blood work shows elevated serum erythropoietin consistent with secondary erythrocytosis related to underlying sleep apnea and probable hypoxemia. There is no need at this time for therapeutic phlebotomy. Her CBC is stable with mild erythrocytosis. Follow-up in 6 months. - Time Spent With Patient Time Spent with Patient (in minutes): 15
[2021-04-06 15:01] VITALS: BP 151/65; PULSE 66; RESP 14; TEMP 36.4; O2SAT 95; BMI 40.2
[2021-04-06 15:36] LABS: MANUAL DIFF FLAG NO
[2021-04-06 16:22] LABS: Basophils Absolute Auto 0.1 X10*3/uL (0.0-0.2); Basophils Percent Auto 1.2 % (0-2); Eosinophils Absolute Auto 0.1 X10*3/uL (0.0-0.4); Eosinophils Percent Auto 1.7 % (0-4); Hematocrit 49.2 % (37-47); Hemoglobin 15.4 g/dl (12.0-16.0); Imm Gran Abs Auto 0.03 X10*3/uL (0.00-0.03); Imm Gran Pct Auto 0.5 % (0.0-0.4); Lymphocytes Absolute Auto 1.3 X10*3/uL (1.2-4.9); Lymphocytes Percent Auto 22.1 % (20-40); Mean Corpuscular HGB Conc 31.3 g/dl (31.0-35.0); Mean Corpuscular Hemoglobin 29.9 pg (27.0-33.0); Mean Corpuscular Volume 95.5 fL (80-98); Monocytes Absolute Auto 0.6 X10*3/uL (0.1-1.2); Monocytes Percent Auto 9.1 % (2-11); Neutrophils Percent Auto 65.4 % (45-73); Platelet Count 245 X10*3/uL (160-400); Red Blood Count 5.15 X10*6/uL (4.20-5.50); Red Cell Distribution Width 14.7 % (11.0-16.0)
== END | disposition home or self-care (01) ==
LOC: HO.ONC 01-07 14:10
PROVIDERS: PCP Family Medicine; Visit Provider Internal Medicine
DX: D75.1 Secondary polycythemia (principal); G47.30 Sleep apnea, unspecified
CPT/HCPCS: 36415; 82668; 83615; 85025; 85045; 99204; 99213